=== PATIENT | male | born 1995 | race Caucasian/White ===

== ENCOUNTER → 2019-11-15 09:41 | Outpatient (BNVA) | payer MEDICARE, MEDICAID, SELFPAY | PROVIDERS: Family Provider Family Medicine; PCP Family Medicine; Visit Provider Nurse Practitioner | DX: F31.32 Bipolar disorder, current episode depressed, moderate (principal); F90.2 Attention-deficit hyperactivity disorder, combined type; R41.83 Borderline intellectual functioning | CPT/HCPCS: 99213 ==

== ENCOUNTER → 2019-11-19 09:34 | Outpatient (BNVA) | payer MEDICARE, MEDICAID, SELFPAY | PROVIDERS: Family Provider Family Medicine; PCP Family Medicine; Visit Provider Nurse Practitioner | DX: F31.32 Bipolar disorder, current episode depressed, moderate (principal) | CPT/HCPCS: 80061; 83036 ==